=== PATIENT | female | born 1960 | race Caucasian/White ===

== ENCOUNTER 2019-02-21 10:04 | Emergency (ER) | payer MEDICARE, MEDICAID ==
[~2019-02-21] VITALS: Ht 165.1 cm; Wt 54.4 kg
[~2019-02-21 10:04] MED LIST: FLUOXETINE; PREMPRO; TOPOMAX; [UNRECOGNIZED DRUG - OTHER]
[2019-02-21 10:42] LABS: Basophils # (auto) 0 uL; Basophils % (auto) 0.5 % (0.0-2.0); Eosinophils # (auto) 0 uL; Eosinophils % (auto) 0.3 % (0.0-7.0); Hematocrit 38.2 % (36.0-46.0); Hemoglobin 12.8 g/dL (12.2-16.2); Lymphocytes % (auto) 26.9 % (10.0-50.0); Mean Corpuscular Hemoglobin 31.1 pg (28.0-32.0); Mean Corpuscular Hgb Conc. 33.4 g/dL (32.0-36.0); Monocytes # (auto) 0.5 uL; Monocytes % (auto) 12.1 % (0.0-12.0); Neutrophils # (auto) 2.3 uL; Neutrophils % (auto) 60.2 % (37.0-80.0); Platelet Count (auto) 255 10^3/uL (140-450); Red Blood Cells 4.11 10^6/uL (4.0-5.20); Red Cell Distribution Width 12.8 % (11.8-14.3); White Blood Cell 3.8 10^3/uL (4.4-10.8)
[2019-02-21 11:16] LABS: Alanine Aminotransferase 24 U/L (13-56); Albumin 3.5 g/dL (3.4-5.0); Anion Gap 9 (5-15); Aspartate Aminotransferase 25 U/L (15-37); BUN/Creatinine Ratio 15.1; Blood Urea Nitrogen 13 mg/dL (7-18); Calcium 8.1 mg/dL (8.5-10.1); Carbon Dioxide 25 mmol/L (21-32); Chloride 108 mmol/L (98-107); GFR African American 88 mL/min; GFR Non-African American 73 mL/min; Glucose 96 mg/dL (74-106); Lipase 95 U/L (73-393); Magnesium 2.4 mg/dL (1.6-2.6); Potassium 3.7 mmol/L (3.5-5.1); Sodium 142 mmol/L (136-145)
[2019-02-21] MEDS ORDERED: SODIUM CHLORIDE 0.9% 1,000 ML IV ONE ×2 (11:18)
[2019-02-21 11:21] LABS: Alkaline Phosphatase 74 U/L (45-117); Bilirubin, Total 0.1 mg/dL (0.2-1.0)
[2019-02-21 12:05] LABS: Urine Bacteria NONE SEEN /hpf (None Seen); Urine Blood Negative /uL (Negative); Urine Specific Gravity 1.009 (1.001-1.035); Urine WBC <1 /hpf (0 - 5)
[2019-02-21] MEDS ORDERED: ONDANSETRON HCL 4 MG/2 ML VIAL ONE (13:19)
[2019-02-21] MEDS ORDERED: ONDANSETRON HCL 4 MG/2 ML VIAL IV ONE (13:30)
[2019-02-21 13:43] LABS: Alcohol, Urine < 3.0 mg/dL (0-5); Amphetamine Screen, Urine NEGATIVE (NEGATIVE); Barbiturate Scree,Urine NEGATIVE (NEGATIVE); Benzodiazephine Screen, Urine NEGATIVE (NEGATIVE); Cannabinoid Screen, Urine NEGATIVE (NEGATIVE); Cocaine Screen, Urine NEGATIVE (NEGATIVE)
[2019-02-21 13:53] LABS: Opiate Scree,Urine POSITIVE (NEGATIVE); Phencyclidine Screen, Urine NEGATIVE (NEGATIVE)
[2019-02-21 16:49] VITALS: BP 116/75
== END 2019-02-21 17:26 | disposition home or self-care (01) ==
LOC: EDUNIT# 10:04 → EDBD 10:04 → ER 10:08
DX: K29.70 Gastritis, unspecified, without bleeding (principal); F41.9 Anxiety disorder, unspecified
CPT/HCPCS: 36415; 74176; 80053; 80307; 81001; 83690; 83735; 84484; 85025; 93005; 96361; 96374; 99284; J2405; J7030